=== PATIENT | female | born 1965 | race Caucasian/White ===

== ENCOUNTER 2017-07-14 14:49 | Emergency (ER) | payer MEDICAID, MEDICARE ==
[~2017-07-14] VITALS: Ht 165.1 cm; Wt 50.8 kg
[2017-07-14 14:56] VITALS: BP 132/86
== END 2017-07-14 16:14 | disposition home or self-care (01) ==
LOC: ED 15:30
DX: J20.8 Acute bronchitis due to other specified organisms (principal); B96.89 Other specified bacterial agents as the cause of diseases classified elsewhere
CPT/HCPCS: 71046; 99284